=== PATIENT | male | born 1985 | race Caucasian/White ===

== ENCOUNTER 2025-02-17 19:53 | Emergency (ER) | payer BC, SELFPAY ==
[2025-02-17 19:57] VITALS: BP 164/100
--- NOTE | 2025-02-17 20:50 | ED.GENMED ---
History of Present Illness
General
Chief Complaint: Skin Surface Trauma
Source: patient
Exam Limitations: none
Time Seen by Provider: 02/17/25 20:38
History of Present Illness
History of Present Illness:
See MDM
Past History
Past History
ED Past Medical History: None
ED Past Surgical History: None
Social History
Tobacco: Non-smoker
Alcohol: None
Phy Exam
Physical Exam
Physical Exam:
See MDM
Course
Orders/Labs/Results
Orders:
Orders
02/17/25 20:50
Amoxicillin 875 mg/Clav 125 mg [Augmentin 875 mg/125 mg] 1 tablet PO NOW STA
Tetanus/Diphth/Acelpertussis [Adacel] 0.5 ml IM .ONCE ONE
Vital Signs
Initial and Last Documented VS:
Initial Vital Signs
Temp Pulse Resp BP Pulse Ox
98.7 F 108 22 164/100 100
02/17/25 19:57 02/17/25 19:57 02/17/25 19:57 02/17/25 19:57 02/17/25 19:57
Last Documented Vital Signs
Temp Pulse Resp BP Pulse Ox
98.7 F 108 22 164/100 100
02/17/25 19:57 02/17/25 19:57 02/17/25 19:57 02/17/25 19:57 02/17/25 19:57
Procedures
Digital Block
Location of injection for digital block: head of metacarpals (left hand, finger #2)
Indiction for Digital Block: other (Foreign body removal)
Was sensory exam normal prior to exam?: decreased pin prick
Type of anesthesia: 1% Lidocaine w/o EPI
Complications: none- good anesthesia
Foreign Body Removal-Skin
Wound explored and foreign body removed?: Yes
Anesthesia: 1% lidocaine
Foreign body removed using: forceps
Foreign body removed: completely
MDM/Problems Addressed
Differential Diagnosis Includes:
HPI and MDM Narrative:
39-year-old male presenting with fishhook injury to his left hand. Patient caught a fish. When he was trying to get the hook out, he pierced his left index finger. He was unable to remove the hook so he came in. He is unsure about his tetanus
shot. Patient started to notice numbness and tingling to his left finger.
On exam, there is very mild sensory deficit where the injury was. After digital block was performed, the hook was easily removed. Range of motion in the finger appeared intact. Will update tetanus and start Augmentin
Physical exam
General: Well appearing and non-toxic
HEENT: protecting airway
Neck: appears supple
CV: No evidence of cyanosis
Resp: No accessory muscle use
Abd: Non-distended
Extremities: [place] embedded into lateral aspect of left index finger near the PIP joint on the ulnar side. Cap refill intact. Sensation mildly decreased distally
Neuro: alert
Psych: Normal affect
Skin: Intact
Problems Addressed including Acute and Chronic Conditions affecting care:
1. Embedded fishhook
Acuity: acute
Prognosis: stable
Details: After digital block, the fishhook was easily removed. Afterwards, range of motion intact. No evidence of ligamentous or bony injury. discussed return precautions. Tetanus updated. The wound was cleaned and Augmentin started
The entirety of the hook was removed. Low clinical suspicion for retained foreign body
Differential Diagnosis (but not limited to): [place] injury, fracture, ligament injury
Testing considered: Finger x-ray
Drug therapy (if applicable): OTC meds, please see d/c instruction regarding Rx drugs
Amount and/or Complexity of Data Reviewed
Clinical info obtained from: Patient
External data reviewed: N/A
Labs I independently reviewed (but not limited to): N/A
Radiology: N/A
Pulse Ox: not hypoxic
EKG independently reviewed: N/A
Soc Analyst: N/A
Critical Care: N/A
Risk of Complication:
Social Determinants of health: Good social support
Discussed with other providers: N/A
Escalation of Care includes Admit/Obs: After being observed in the Emergency Department, pt stable for discharge.
Occasional wrong word or 'sound a like' substitutions may have occurred due to the inherent limitations of voice recognition software. Read the chart carefully and recognize, using context, where substitutions have occurred.
*Critical Care Note
Total Time (30-74mins, 75-104mins- exclusive of procedures): Not Applicable
ED Attending Note
-
Portions of this chart may have been created with voice recognition software.� Occasional wrong word or��sound alike� substitutions may have occurred due to the inherent limitations of voice recognition software.
Discharge Plan
Departure
Patient Disposition: Home (Routine Discharge)
Date of Disposition: 02/17/25
Time of Disposition: 20:50
Patient with high blood pressure during this ER visit?: Yes
Discharge Problem:
Fish hook injury of finger of left hand
Instructions: Wound Care (DC)
Prescriptions:
New
amoxicillin-pot clavulanate 875-125 mg tablet
1 tab PO BID Qty: 14 0RF
Activity Restrictions/Additional Instructions:
Watch for signs of infection: fever over 100.5', increasing pain, red streaks around wound, swelling, or increasing drainage of pus. If any of these happen, return to ED promptly. Make sure that you take all your antibiotics as directed and finish
your prescription even if you feel better before the bottle is empty
Interventions
Interventions:
*Risk Screen - Suicide Last Done: 02/17/25 19:57
*General Assessment Last Done: 02/17/25 19:57
*Neglect/Abuse Screening Last Done: 02/17/25 19:57
ED-Skin Assessment Last Done: 02/17/25 21:07
Discharge Date and Time
Print Language: VENEZUELAN
[2025-02-17] MEDS: AUGMENTIN 875 MG/125 MG 1 TABLET PO (21:02)
[2025-02-17] MEDS: ADACEL 0.5 ML IM (21:02)
== END 2025-02-17 21:08 | disposition home or self-care (01) ==
LOC: EMR 19:53
PROVIDERS: EMERGENCY PHYSICIAN Student in an Organized Health Care Education/Training Program
DX: S61.241A Puncture wound with foreign body of left index finger without damage to nail, initial encounter (principal); R20.0 Anesthesia of skin; R20.2 Paresthesia of skin; W26.8XXA Contact with other sharp object(s), not elsewhere classified, initial encounter; W45.8XXA Other foreign body or object entering through skin, initial encounter; Y93.89 Activity, other specified; Z23 Encounter for immunization; R03.0 Elevated blood-pressure reading, without diagnosis of hypertension
CPT/HCPCS: 99284; 64450; 90471; 90715